=== PATIENT | male | born 1985 | race Caucasian/White ===

== ENCOUNTER 2016-12-01 19:52 | Emergency (ER) | payer BC ==
--- NOTE | 2016-12-01 21:14 | EDPHY ---
H & P Smoking Status: Never smoked Time Seen by Provider: 12/01/16 20:20 HPI/ROS: CHIEF COMPLAINT: Right knee laceration HISTORY OF PRESENT ILLNESS: 31-year-old male presents to the emergency department by private vehicle after he fell trail running earlier this evening and hit a rock with his right knee. Was able to run down. He complains of isolated pain to the right knee. Denies hitting his head or losing consciousness. His last tetanus shot was 1 year ago. Describes the pain as mild. ROS: Denies numbness or tingling in his toes, retained foreign body, pain in his right ankle or hip. (Ingris Acosta) Past Medical/Surgical History: Negative (Ingris Acosta) Social History: (Ingris Acosta) Physical Exam: On examination the patient has a 2 cm laceration to the right anterior aspect of his proximal lower leg just distal to the right knee. He has full range of motion of the right knee. Patellar tendon is intact. There is some mild debris. No palpable bony tenderness. Overlying very superficial abrasion noted as well. Full range of motion of the right knee. Normal gait. (Ingris Acosta ) Constitutional: Initial Vital Signs Temperature (C) 37.0 C 12/01/16 20:01 Heart Rate 73 12/01/16 20:01 Respiratory Rate 18 12/01/16 20:01 Blood Pressure 133/83 H 12/01/16 20:01 O2 Sat (%) 96 12/01/16 20:01 O2 Delivery Mode Room Air Allergies/Adverse Reactions: No Known Allergies Allergy (Unverified 12/01/16 20:01) Home Medications: Medication Instructions Recorded NK [No Known Home Meds] 12/01/16 MDM/Departure - MDM Procedures: Laceration repair. Verbal consent was obtained from the patient. The 2 cm laceration on the right anterior lower leg was anesthetized using 1% lidocaine with epinephrine. The wound was irrigated with saline, draped and explored to its base with a gloved finger. There were no deep structures involved. No tendon injury was identified. The wound was repaired with 4 0 Ethilon, 3 sutures. The wound repair was simple. The procedure was performed by myself. (Ingris Acosta) ED Course/Re-evaluation: 31-year-old male presents with right knee laceration. The wound was repaired, see procedure note. He was given wound care precautions. (Ingris Acosta) I did not see this patient while he was in the emergency department. However his care was discussed with the PA while the patient was in the department. I agree with treatment plan and management (Freeman Graham) - Depart Disposition: Home, Routine, Self-Care Clinical Impression: Laceration of right knee Qualifiers: Encounter type: initial encounter Qualified Code(s): S81.011A - Laceration without foreign body, right knee, initial encounter Condition: Good Instructions: Care For Your Stitches (ED), Laceration (ED), Contusion in Adults (ED) Additional Instructions: Wound Care Follow-Up: Removal of sutures in 10 days. Suture removal is complimentary in uncomplicated cases. Infection or abnormal findings would require reevaluation by the MD. In that case, you may be billed. Avoid any activity that causes pain in your right knee or causes excessive stress to the sutures while they are in place. Ibuprofen 600 mg every 8 hours as needed for pain. Activity as tolerated. Avoid any swimming or soaking your right leg until the stitches have been removed in 10 days. Return if he notices any signs or symptoms of infection such as redness, swelling, increased pain, fever, purulent drainage. Referrals: Freeman Crowe [Primary Care Provider] - As per Instructions
[2016-12-01 21:38] VITALS: BP 129/81; PULSE 62; RESP 16; TEMP 98.1; O2SAT 95
== END 2016-12-01 21:38 | disposition home or self-care (01) ==
PROC: 0HQKXZZ Repair Right Lower Leg Skin, External Approach (ICD-10-PCS; principal; 2016-12-01)
DX: S81.011A Laceration without foreign body, right knee, initial encounter (principal); W18.09XA Striking against other object with subsequent fall, initial encounter; Y99.8 Other external cause status; Y93.02 Activity, running

== ENCOUNTER → 2016-12-02 | Outpatient (CLI) | payer BC | LOC: FLAB 15:36 | PROVIDERS: ATTEND Family Medicine | DX: S81.011A Laceration without foreign body, right knee, initial encounter (principal); S80.00XA Contusion of unspecified knee, initial encounter ==